=== PATIENT | female | born 1950 | race Caucasian/White ===

== ENCOUNTER 2017-01-17 06:43 | Day surgery (SDC) | payer BC, MEDICARE ==
[~2017-01-17] VITALS: Ht 165.1 cm; Wt 59.8 kg
[~2017-01-17 06:43] MED LIST: ASCO500T9 PO; CALC600T86 PO; MULT-543 PO
[2017-01-17] MEDS ORDERED: LR 1,000 ML IV SCH (07:00)
[2017-01-17] MEDS ORDERED: LIDOCAINE 1% (10mg/ml) 2ml SDV INJ ONE (07:00)
[2017-01-17] MEDS ORDERED: OMEG300C PO (07:03)
[2017-01-17 07:05] VITALS: BP 166/79; PULSE 70; RESP 14; TEMP 98; O2SAT 99; Ht 165.1 cm; Wt 59.8 kg
--- NOTE | 2017-01-17 08:15 | ANESPREOP ---
Anesthesia Record Date and Time DATE: 01/17/17 TIME: 08:13 Pre-Op Diagnosis hx polyps Proposed Surgical Procedure COLONOSCOPY Allergies: Coded Allergies: No Known Drug Allergies (Verified Allergy, Unknown, 01/14/17) Ht/Wt/BMI Height: 5 ' 5.00 " Weight: 59.800 kg BMI: 21.9 kg/m2 Vital Signs Date Time Temp Pulse Resp B/P Pulse Ox O2 Delivery O2 Flow Rate FiO2 01/17/17 07:05 98.0 70 14 166/79 99 Room Air Medications Inpatient Medications Current Medications Medications (Trade) Dose Ordered Sig/Suzanne Start Time Stop Time Status Last Admin Dose Admin Lactated Ringer's (Lactated Ringers) 1,000 ml @ 50 mls/hr Q20H 01/17/17 07:00 Ascorbic Acid (Vitamin C) 500 Mg Tablet, 2 TAB PO DAILY, (Reported) Last Taken: on 01/14/17 Calcium Carbonate (Calcium) 600 Mg Tablet, 1,200 MG PO, (Reported) Last Taken: on 01/14/17 Multivitamins (Multiple Vitamin) 1 Tab Tablet, 1 TAB PO DAILY, (Reported) Last Taken: on 01/14/17 [place]-3 Fatty Acids (Fish Oil) 300 Mg Capsule, 300 CAP PO DAILY, (Reported) Last Taken: on 01/14/17 Currently on Beta Paulina: No Medical/Surgical History Anesthesia PMH: Reports: *Diabetes (IMPAIRED FASTING GLUCOSE-DECLINED MEDS AT THIS TIME PER H&P), Cancer (MELANOMA IN SITU VULVAR AREA ), Denies: *Angina, * Dyspnea, *Hypertension, *[place], Anesthesia Reactions (NO AIRWAY ISSUES), Arthritis , Asthma, CHF, COPD, CVA/Stroke/TIA, Clotting Problems, Deep Vein Thrombosis, Glaucoma, Headaches, Hepatitis, Hiatal Hernia, Malignant Hyperthermia, Pneumonia , Reflux, Renal Disease, Rheumatic Fever, Seizures, Sleep Apnea, Thyroid Disease , Tuberculosis Smoking Status: Never smoker Use Chewing Tobacco?: No Second Hand Exposure: No Substance Use Type: does not use Alcohol Intake: none HX of Last Menstrual Period: AROUND AGE 50 Past Surgical History Orthopedic Surgeries: Yes - L. HIP REPLACEMENT Abdominal Surgeries: No Genitourinary Surgeries: No Cardiac Surgeries: No Endocrine Surgeries: No Reproductive Surgeries: No Neurological Surgeries: No Ear Surgeries: No Nose Surgeries: No Throat Surgeries: No Other Surgeries: Yes - COLONOSCOPYX2 Anesthesia Adverse Reactions: FOUND none Family Hx of Anesthesia Advers: none Hx of Motion Sickness: No Pertinent Findings EKG Rhythm: Sinus Rhythm Physical Exam Respiratory: Bilat breath sounds equal, Lungs clear Cardiovascular: FOUND Regular rate, rhythm, FOUND No murmur Airway Assessment Mallampati Score: II TMD: 3 Fingerbreadths Neck Extension: Good Overall Assessment: No Airway Concerns ASA: 2 Plan Anesthesia Plan: TIVA Discussion Discussed risks/options/alternatives of anesthesia and questions answered. Patient consents. Nursing pain assessment noted. Attestation Statement Prior to the delivery of any anesthetic medication, I examined the patient, developed the plan, obtained the patient's consent and discussed the risk and benefits of the procedure with the patient/guardian. ORALIA CARLIN CRNA Jan 17, 2017 08:15
[2017-01-17] MEDS ORDERED: PROPOFOL 500mg 50 ML IV ONE (08:20)
[2017-01-17 08:51] VITALS: BP 129/75; PULSE 79; RESP 14; TEMP 97.5; O2SAT 96
--- NOTE | 2017-01-17 08:55 | ANESPO ---
Post-Op Note Date 01/17/17 Time: 08:55 Status Pt Participated in Evaluation: Pt participated in person Vital Signs Date Time Temp Pulse Resp B/P Pulse Ox O2 Delivery O2 Flow Rate FiO2 01/17/17 07:05 98.0 70 14 166/79 99 Room Air Respiratory Function: Airway patent, Regular respirations Cardiovascular Function: Regular pulse Telemetry Pattern: SR Mental Status: Alert/oriented Pain Level Intensity: 0 Hydration: Taking po fluids Complications during Recovery None apparent Follow-Up Instructions Instructions Per Surgeon ORALIA CARLIN CRNA Jan 17, 2017 08:55
[2017-01-17 09:05] VITALS: BP 128/73; PULSE 70; RESP 18; O2SAT 99
[2017-01-17 09:20] VITALS: BP 137/81; PULSE 68; RESP 18; O2SAT 97
[2017-01-17 09:35] VITALS: BP 144/82; PULSE 64; RESP 16; O2SAT 97
--- NOTE | 2017-01-17 13:57 | OPNOTEF ---
FUDATE OF OPERATION 01/17/2017 PREOPERATIVE DIAGNOSIS History of tubular adenoma colon. POSTOPERATIVE DIAGNOSIS History of tubular adenoma colon, within normal limits. OPERATION Colonoscopy, no biopsies taken. SURGEON Chilo Pan M.D. ANESTHESIA TIVA DESCRIPTION OF OPERATIVE PROCEDURE The patient was prepped with Colyte the evening prior to the procedure. She was placed in the left lateral position. After a benign digital rectal exam, the colonoscope was inserted and advanced to the cecum with cecal landmarks identified. The cecum, ascending colon, transverse colon and sigmoid showed no evidence of hemorrhage, mass lesions, ulcerations, polyps or inflammatory changes. The rectum and anus were clear. The colon was suctioned. The scope removed with patient tolerating the procedure well. She was stable post colonoscopy. FU colonoscopy 5 years or sooner as indicated. ALICE
== END 2017-01-17 11:50 | disposition home or self-care (01) ==
LOC: NSC 06:43
DX: Z12.11 Encounter for screening for malignant neoplasm of colon (principal); Z86.010 Personal history of colon polyps; R73.01 Impaired fasting glucose; Z73.3 Stress, not elsewhere classified; Z85.820 Personal history of malignant melanoma of skin
CPT/HCPCS: 45378; J2704; J7120